=== PATIENT | female | born 1995 | race Two or more races ===

== ENCOUNTER 2024-11-19 17:38 | Inpatient (IN) | payer OTHER ==
[2024-11-19] MEDS: ELECTROLYTE IV SCH (23:00)
[2024-11-19 23:29] LABS: BASO % 0.3 % (0-2.0); EOS % 0.6 % (0-4.5); HEMATOCRIT 37.3 % (32.4-45.2); HEMOGLOBIN 12.8 GM/dL (10.7-15.3); LYMPH % 22.6 % (8-40); MCH 29.7 pg (25.7-33.7); MCHC 34.3 g/dl (32.0-36.0); MEAN CELL VOLUME 86.5 fl (80-96); MEAN PLT VOLUME 8.3 fl (7.5-11.1); NEUT % 69.5 % (42.8-82.8); PLATELET COUNT 231 10^3/uL (134-434); RBC 4.32 M/mm3 (3.60-5.2); RDW 13.9 % (11.6-15.6); WHITE BLOOD COUNT 10.5 K/mm3 (4.0-10.0)
[2024-11-19 23:55] LABS: POTASSIUM 3.7 mmol/L (3.5-5.1)
[2024-11-19 23:58] LABS: CALCIUM 9.2 mg/dL (8.5-10.1)
[2024-11-19 23:59] LABS: ALBUMIN 2.6 g/dl (3.4-5.0); BLOOD UREA NITROGEN 7.6 mg/dL (7-18)
[2024-11-20 00:02] LABS: CREATININE 0.5 mg/dL (0.55-1.3)
[2024-11-20 00:03] LABS: BILIRUBIN,TOTAL 0.2 mg/dL (0.2-1)
[2024-11-20 00:42] VITALS: BMI 33.6
[2024-11-20] MEDS: DINOPROSTONE 10 MG VAGINAL SUPPOSITORY VG ONE (12:00)
[2024-11-20] MEDS: ELECTROLYTE-148 SOLN 1,000 ML IV SCH (12:07)
[2024-11-20 21:42] LABS: BASO % 0.5 % (0-2.0); HEMATOCRIT 36.3 % (32.4-45.2); HEMOGLOBIN 12.6 GM/dL (10.7-15.3); LYMPH % 21.7 % (8-40); MCHC 34.7 g/dl (32.0-36.0); MEAN CELL VOLUME 86.5 fl (80-96); MEAN PLT VOLUME 8.8 fl (7.5-11.1); MONO % 10.1 % (3.8-10.2); NEUT % 66.7 % (42.8-82.8); PLATELET COUNT 232 10^3/uL (134-434); RDW 14.2 % (11.6-15.6); WHITE BLOOD COUNT 9.5 K/mm3 (4.0-10.0)
[2024-11-20 21:45] LABS: INR 0.98 (0.83-1.09); PROTHROMBIN TIME (PATIENT) 10.8 SEC (9.7-13.0)
[2024-11-20 21:48] LABS: ACTIVATED PTT 24.6 SECONDS (25.2-36.5)
[2024-11-20 22:06] LABS: POTASSIUM 4.1 mmol/L (3.5-5.1)
[2024-11-20 22:10] LABS: ALBUMIN 2.4 g/dl (3.4-5.0); BLOOD UREA NITROGEN 7.5 mg/dL (7-18); CALCIUM 8.7 mg/dL (8.5-10.1)
[2024-11-20 22:14] LABS: CREATININE 0.5 mg/dL (0.55-1.3)
[2024-11-20 22:15] LABS: BILIRUBIN,TOTAL 0.3 mg/dL (0.2-1); TOT PROT 5.6 g/dl (6.4-8.2)
[2024-11-20 22:58] LABS: HIV INTERPRETATION NEGATIVE (NEGATIVE)
[2024-11-21] MEDS: DINOPROSTONE 10 MG VAGINAL SUPPOSITORY VG STA
[2024-11-21] MEDS ORDERED: BUTORPHANOL TARTRATE 2 MG/ML VIAL ONE (00:09)
[2024-11-21] MEDS ORDERED: PROMETHAZINE HCL 25 MG/1 ML VIAL ONE (00:09)
[2024-11-21] MEDS: PROMETHAZINE HCL 25 MG/1 ML VIAL IVPB ONE (00:20)
[2024-11-21] MEDS: BUTORPHANOL TARTRATE 2 MG/ML VIAL IVPB ONE (00:20)
[2024-11-21] MEDS: OXYTOCIN 30 UNITS in 0.9% NS 30 UNIT/500 ML INFUS.BAG IVPB SCH (13:24)
[2024-11-21] MEDS: DEXTROSE 5%-LACTATED RINGERS 1,000 ML IV SCH (13:32)
[2024-11-21] MEDS: ACETAMINOPHEN 325 MG TABLET (FP) PO PRN (13:32)
[2024-11-21] MEDS ORDERED: FENTANYL/BUPIVACAINE/NS/PF - PCEA - 50 ML DISP.SYRIN EP ONE ×3 (17:09→23:36)
[2024-11-21] MEDS ORDERED: SODIUM CHLORIDE 100 ML IVPB ONE (17:27)
[2024-11-21] MEDS ORDERED: AMPICILLIN SODIUM 2 GM VIAL ONE (17:27)
[2024-11-21] MEDS: AMPICILLIN - 2 GM in SODIUM CHLORIDE 100 ML IVPB ONE (17:32)
[2024-11-21] MEDS: FENTANYL/BUPIVACAINE/NS/PF - PCEA - 50 ML DISP.SYRIN EP SCH (17:58)
[2024-11-21] MEDS ORDERED: NALOXONE HCL 0.4 MG/ML VIAL IVPUSH PRN (18:19)
[2024-11-21] MEDS ORDERED: AMPICILLIN SODIUM 1 GM VIAL ONE (21:25)
[2024-11-21] MEDS: AMPICILLIN - 1 GM in SODIUM CHLORIDE 100 ML IVPB SCH (21:30)
[2024-11-22] MEDS ORDERED: AMPICILLIN SODIUM 1 GM VIAL ONE ×3 (01:07→08:15)
[2024-11-22] MEDS ORDERED: FENTANYL/BUPIVACAINE/NS/PF - PCEA - 50 ML DISP.SYRIN EP ONE ×6 (02:38→14:53)
[2024-11-22] MEDS ORDERED: SODIUM CHLORIDE 100 ML IVPB ONE (08:15)
[2024-11-22] MEDS ORDERED: AZITHROMYCIN IVPB 500 MG/250 ML BAG IVPB ONE (11:36)
[2024-11-22] MEDS: AZITHROMYCIN IVPB 500 MG/250 ML BAG IVPB ONE (11:43)
[2024-11-22] MEDS ORDERED: IBUPROFEN 600 MG TABLET (FP) PO PRN (16:55)
[2024-11-22] MEDS ORDERED: IBUPROFEN 800 MG/8 ML IJ IVPB PRN (16:55)
[2024-11-22] MEDS ORDERED: FENTANYL CITRATE/PF 50 MCG/ML VIAL ONE ×2 (17:38→17:49)
[2024-11-22] MEDS ORDERED: MIDAZOLAM HCL 2 MG/2 ML SINGLE DOSE VIAL ONE (17:49)
[2024-11-22] MEDS: OXYTOCIN 20 UNITS in 0.9% NS 20 UNIT/1,000 ML INFUS.BAG IV SCH (18:15)
[2024-11-22] MEDS ORDERED: OXYTOCIN 20 UNITS in 0.9% NS 20 UNIT/1,000 ML INFUS.BAG IV ONE (18:19)
[2024-11-22] MEDS ORDERED: ACETAMINOPHEN INJECTION 100 ML ONE (19:19)
[2024-11-22] MEDS: ACETAMINOPHEN 1000 MG/100 ML BAG IVPB PRN (19:25)
[2024-11-23] MEDS ORDERED: AZITHROMYCIN IVPB 500 MG/250 ML BAG IVPB ONE (06:28)
[2024-11-23] MEDS ORDERED: ACETAMINOPHEN INJECTION 100 ML ONE (06:30)
[2024-11-23] MEDS: AZITHROMYCIN IVPB 500 MG/250 ML BAG IVPB ONE (06:36)
[2024-11-23 08:16] LABS: BASO % 0.3 % (0-2.0); EOS % 0.2 % (0-4.5); HEMATOCRIT 35.2 % (32.4-45.2); HEMOGLOBIN 11.9 GM/dL (10.7-15.3); LYMPH % 8.3 % (8-40); MCH 29.4 pg (25.7-33.7); MCHC 33.7 g/dl (32.0-36.0); MEAN CELL VOLUME 87.1 fl (80-96); MEAN PLT VOLUME 8.4 fl (7.5-11.1); MONO % 7.5 % (3.8-10.2); NEUT % 83.7 % (42.8-82.8); PLATELET COUNT 222 10^3/uL (134-434); RBC 4.04 M/mm3 (3.60-5.2); RDW 14.2 % (11.6-15.6); WHITE BLOOD COUNT 13.8 K/mm3 (4.0-10.0)
[2024-11-23] MEDS: oxyCODONE HCL 5 MG TABLET PO PRN (10:44)
[2024-11-23] MEDS ORDERED: BISACODYL 10 MG SUPP.RECT RC PRN (16:55)
[2024-11-23 17:06] VITALS: RESP 18
[2024-11-23] MEDS: ACETAMINOPHEN 325 MG TABLET (FP) PO PRN (18:47)
[2024-11-23] MEDS: SIMETHICONE 80 MG TAB.CHEW (FP) PO PRN (20:21)
[2024-11-23] MEDS: ACETAMINOPHEN 1000 MG/100 ML BAG IVPB ONE (21:48)
[2024-11-23] MEDS: ACETAMINOPHEN 500 MG TABLET (FP) PO PRN (22:48)
[2024-11-24] MEDS: oxyCODONE HCL 5 MG TABLET PO PRN (00:45)
[2024-11-25 08:12] LABS: BASO % 0.4 % (0-2.0); EOS % 2.7 % (0-4.5); HEMATOCRIT 39.1 % (32.4-45.2); HEMOGLOBIN 13.3 GM/dL (10.7-15.3); LYMPH % 20.4 % (8-40); MCH 30.1 pg (25.7-33.7); MEAN CELL VOLUME 88.5 fl (80-96); MEAN PLT VOLUME 8.5 fl (7.5-11.1); MONO % 7.2 % (3.8-10.2); NEUT % 69.3 % (42.8-82.8); PLATELET COUNT 306 10^3/uL (134-434); RBC 4.41 M/mm3 (3.60-5.2); RDW 13.9 % (11.6-15.6); WHITE BLOOD COUNT 9.6 K/mm3 (4.0-10.0)
[2024-11-25 11:19] VITALS: BP 122/81; PULSE 92; TEMP 97.8
== END 2024-11-25 15:00 | disposition home or self-care (01) | DRG 540 ==
LOC: JDEL 17:38 → OBSVTOIN 22:30 → UNDOADMOB 22:30 → JLDR 22:30 → INTOOBSV 22:30 → OBSVTOIN 11-20 11:05 → JLDR 11-20 11:05 → J3W 11-22 21:31
PROVIDERS: ADMIT Student in an Organized Health Care Education/Training Program; ATTEND Student in an Organized Health Care Education/Training Program
PROC: 10D00Z1 Extraction of Products of Conception, Low, Open Approach (ICD-10-PCS; principal; 2024-11-22)
DX: O41.03X0 Oligohydramnios, third trimester, not applicable or unspecified (principal); O42.92 Full-term premature rupture of membranes, unspecified as to length of time between rupture and onset of labor; O99.824 Streptococcus B carrier state complicating childbirth; O24.420 Gestational diabetes mellitus in childbirth, diet controlled; O61.9 Failed induction of labor, unspecified; Z3A.40 40 weeks gestation of pregnancy; Z37.0 Single live birth
CPT/HCPCS: 36415; 76819-TC; 80053; 82962; 85025; 85610; 85730; 86780; 86850; 86900; 86901; 87389; 88307-TC; 94010; J0131